=== PATIENT | male | born 1985 | race Two or more races ===

== ENCOUNTER 2024-02-15 00:54 | Emergency (ER) | payer MEDICAID, OTHER ==
[~2024-02-15] VITALS: Ht 188 cm; Wt 68.2 kg
[2024-02-15 01:04] VITALS: BP 135/102; PULSE 108; RESP 18; O2SAT 98
== END 2024-02-15 04:56 | disposition left against medical advice (07) ==
LOC: ER 00:54
DX: M79.662 Pain in left lower leg (principal); M79.661 Pain in right lower leg; Z53.21 Procedure and treatment not carried out due to patient leaving prior to being seen by health care provider